=== PATIENT | male | born 1960 | race Caucasian/White ===

== ENCOUNTER 2017-05-06 17:10 | Emergency (ER) | payer SELFPAY ==
[~2017-05-06] VITALS: Ht 182.9 cm; Wt 117.9 kg
[2017-05-06] MEDS ORDERED: KETOROLAC TROME10 MG PO (18:14)
== END 2017-05-06 18:25 | disposition home or self-care (01) ==
LOC: ED 17:10
DX: M71.22 Synovial cyst of popliteal space [Baker], left knee (principal); M79.662 Pain in left lower leg
CPT/HCPCS: 93971; 99284

== ENCOUNTER 2018-06-29 18:04 | Emergency (ER) | payer SELFPAY ==
[~2018-06-29] VITALS: Ht 182.9 cm; Wt 120.2 kg
[~2018-06-29 18:04] MED LIST: ASPIRIN EC325 MG PO; CELECOXIB200 MG PO; GABAPENTIN600 MG PO; IRON325 M1 PO; KETOROLAC TROME10 MG PO; LISINOPRIL-HCT1 EACH PO; NORCO 5-325 TA1 EACH PO; OXYCODONE HCL5 MG PO; SENNA LAX8.6 MG PO; TYLENOL EXTRA500 MG PO; VITAMIN C500 M4 PO; XARELTO10 MG PO
== END 2018-06-29 18:52 | disposition home or self-care (01) ==
LOC: ED 18:04
DX: Z00.8 Encounter for other general examination (principal)